=== PATIENT | female | born 1970 | race Hispanic/Latino ===

== ENCOUNTER 2017-10-26 09:38 | Outpatient (CLI) | payer OTHER ==
--- NOTE | 2017-10-27 07:37 | Mammography Report ---
Screening mammogram: Baseline examination. Routine views demonstrates a focal asymmetry in the lateral right breast seen only in the CC projection. In the inferior MLO left breast is an area of architectural distortion not clearly visualized in the cc projection. There is an intermediate generalized fibroglandular density pattern bilaterally. CAD used. Impression: Bilateral asymmetries. Recommendation: Bilateral spot compression imaging and ultrasound, if needed. BI-RADS CATEGORY: 0 = Needs additional imaging evaluation ACR BI-RADS MAMMOGRAPHIC CODES: 0 = Needs additional imaging evaluation; 1 = Negative; 2 = Benign; 3 = Probably benign; 4 = Suspicious; 5 = Malignant; 6 = Known biopsy-proven malignancy COMMENT: 1. Dense breast tissue, i.e., adenosis, fibrocystic changes, etc., may obscure an underlying neoplasm. 2. Approximately 10% of cancers are not detected with mammography. 3. A negative mammography report should not delay biopsy if a clinically suspicious mass is present. A break in the
== END 2017-10-26 09:39 | disposition home or self-care (01) ==
LOC: MAMMO 09:38
PROVIDERS: ATTEND Obstetrics & Gynecology
DX: Z12.31 Encounter for screening mammogram for malignant neoplasm of breast (principal)
CPT/HCPCS: 77067

== ENCOUNTER 2017-11-10 08:29 | Outpatient (CLI) | payer OTHER ==
--- NOTE | 2017-11-10 09:24 | Mammography Report ---
BILATERAL DIGITAL DIAGNOSTIC MAMMOGRAM : 11/10/17 08:29:00 CLINICAL: Recalled for bilateral asymmetries. COMPARISON:10/26/17 screening FINDINGS: Bilateral true lateral and spot images without and with magnification were performed and are negative. IMPRESSION: No mammographic evidence of malignancy. BI-RADS CATEGORY: 1 -- Negative RECOMMENDATION: Routine mammographic screening in one year. ACR BI-RADS MAMMOGRAPHIC CODES: 0 = Needs additional imaging evaluation; 1 = Negative; 2 = Benign; 3 = Probably benign; 4 = Suspicious; 5 = Malignant; 6 = Known biopsy-proven malignancy COMMENT: 1. Dense breast tissue, i.e., adenosis, fibrocystic changes, etc., may obscure an underlying neoplasm. 2. Approximately 10% of cancers are not detected with mammography. 3. A negative mammography report should not delay biopsy if a clinically suspicious mass is present. COMMENT: Patient follow-up letters are generated via our [employer] application.
== END 2017-11-10 08:30 | disposition home or self-care (01) ==
LOC: MAMMO 08:29
PROVIDERS: ATTEND Obstetrics & Gynecology
DX: R92.8 Other abnormal and inconclusive findings on diagnostic imaging of breast (principal)
CPT/HCPCS: 77066

== ENCOUNTER 2017-11-26 13:13 | Emergency (ER) | payer OTHER ==
[2017-11-26] MEDS ORDERED: MOTRIN PO ONE (20:22)
--- NOTE | 2017-11-26 20:23 | Emergency Department Report ---
ED Abdominal Pain HPI - General Chief Complaint: Abdominal Pain Stated Complaint: PAIN IN LOWER L SIDE Time Seen by Provider: 11/26/17 20:19 Source: patient Mode of arrival: Ambulatory Limitations: No Limitations - History of Present Illness Initial Comments: 47-year-old female comes to the emergency room complaining of left back and left groin pain since Wednesday. Patient denies any dysuria denies any hematuria denies any constipation denies any diarrhea no nausea no vomiting. Patient admits to left flank and left groin pain that feels sharp consistent and pains worse with movement. Patient denies any vaginal discharge no vaginal bleeding. Reports her had vasectomy. She has had no surgeries she has a past medical history of hypothyroidism and is taken homeopathic medication from her primary care provider. She does admit to a low- grade fever but did subjectively did not have a thermometer. MD Complaint: abdominal pain, flank pain -: days(s) (3) Location: LLQ, L flank Radiation: LLQ Migration to: no migration Severity: severe Severity scale (0 -10): 9 Quality: fullness, sharp Consistency: constant Improves With: rest Worsens With: movement - Related Data Previous Rx's Medication Instructions Recorded Last Taken Type Acetaminophen/Codeine [Tylenol 1 tab PO Q4HR PRN #12 tablet 11/26/17 Unknown Rx /Codeine # 3 tab] Nitrofurantoin Monohyd/M-Cryst 100 mg PO BID #14 capsule 11/26/17 Unknown Rx [Macrobid 100 mg Capsule] Allergies Allergy/AdvReac Type Severity Reaction Status Date / Time No Known Allergies Allergy Unverified 10/26/17 09:38 ED Review of Systems ROS: Stated complaint: PAIN IN LOWER L SIDE Other details as noted in HPI Constitutional: chills (chronic), fever (subjective) Eyes: denies: eye pain, eye discharge, vision change ENT: denies: ear pain, throat pain Respiratory: denies: cough, shortness of breath, wheezing Cardiovascular: denies: chest pain, palpitations Endocrine: no symptoms reported Gastrointestinal: abdominal pain. denies: nausea, vomiting, diarrhea, constipation Genitourinary: denies: urgency, dysuria, frequency, hematuria, discharge, abnormal menses Musculoskeletal: back pain (left flank pain) Skin: denies: rash, lesions Neurological: denies: headache, weakness, paresthesias Psychiatric: denies: anxiety, depression Hematological/Lymphatic: denies: easy bleeding, easy bruising ED Past Medical Hx - Past Medical History Additional medical history: hypothyroidism - Social History Smoking Status: Never Smoker Substance Use Type: None - Medications Home Medications: Home Medications Medication Instructions Recorded Confirmed Last Taken Type Acetaminophen/Codeine [Tylenol 1 tab PO Q4HR PRN #12 tablet 11/26/17 Unknown Rx /Codeine # 3 tab] Nitrofurantoin Monohyd/M-Cryst 100 mg PO BID #14 capsule 11/26/17 Unknown Rx [Macrobid 100 mg Capsule] ED Physical Exam - General Limitations: No Limitations General appearance: alert, in no apparent distress - Head Head exam: Present: atraumatic, normocephalic - Eye Eye exam: Present: normal appearance - ENT ENT exam: Present: mucous membranes moist - Neck Neck exam: Present: normal inspection - Respiratory Respiratory exam: Present: normal lung sounds bilaterally. Absent: respiratory distress - Cardiovascular Cardiovascular Exam: Present: regular rate, normal rhythm. Absent: systolic murmur, diastolic murmur, rubs, gallop - GI/Abdominal GI/Abdominal exam: Present: soft, tenderness (left lower quadrant), normal bowel sounds - Extremities Exam Extremities exam: Present: normal inspection - Back Exam Back exam: Present: normal inspection, CVA tenderness (L) - Neurological Exam Neurological exam: Present: alert, oriented X3 - Psychiatric Psychiatric exam: Present: normal affect, normal mood - Skin Skin exam: Present: warm, dry, intact, normal color. Absent: rash ED Course Vital Signs 11/26/17 11/26/17 14:32 20:51 Temperature 98 F Pulse Rate 74 Respiratory 18 18 Rate Blood Pressure 145/76 O2 Sat by Pulse 98 Oximetry ED Medical Decision Making - Medical Decision Making Patient's been evaluated by this provider fast track. Discussed the patient give her pain medication as well as urinalysis hCG urine. CT for concerns of urinary stones. Critical care attestation.: If time is entered above; I have spent that time in minutes in the direct care of this critically ill patient, excluding procedure time. ED Disposition Clinical Impression: Abdominal pain Qualifiers: Abdominal location: left lower quadrant Qualified Code(s): R10.32 - Left lower quadrant pain UTI (urinary tract infection) Qualifiers: Urinary tract infection type: site unspecified Hematuria presence: with hematuria Qualified Code(s): N39.0 - Urinary tract infection, site not specified ; R31.9 - Hematuria, unspecified Disposition: DC-01 TO HOME OR SELFCARE Is pt being admited?: No Does the pt Need Aspirin: No Condition: Stable Instructions: Abdominal Pain (ED) Additional Instructions: Complete antibiotics as prescribed. Follow up with her primary care provider if symptoms persist or gets worse. Prescriptions: Acetaminophen/Codeine [Tylenol /Codeine # 3 tab] 1 tab PO Q4HR PRN #12 tablet PRN Reason: Pain Nitrofurantoin Monohyd/M-Cryst [Macrobid 100 mg Capsule] 100 mg PO BID #14 capsule Referrals: EUGENIO DANIEL DO [Primary Care Provider] - 3-5 Days Forms: Work/School Release Form(ED)
[2017-11-26 20:38] LABS: HCG Qualitative,Urine Negative (Negative)
[2017-11-26 20:42] LABS: Bilirubin,Urine NEG (Negative); Blood,Urine MOD (Negative); Color,Urine Yellow (Yellow); Mucus,Urine FEW /HPF; Protein,Urine <15 mg/dL mg/dL (Negative); Urobilinogen,Urine < 2.0 mg/dL (<2.0)
--- NOTE | 2017-11-26 22:09 | Cat Scan Report ---
FINAL REPORT EXAM: CT ABDOMEN PELVIS WO CON HISTORY: left lower quadrant and left flank pain. TECHNIQUE: Unenhanced stone protocol CT of the abdomen and pelvis at 2.5 millimeter axial increments. Coronal and sagittal reconstruction was also performed. PRIORS: None. FINDINGS: There is no evidence for renal calculi or hydronephrosis. No evidence for ureteral or bladder calculus is seen. No evidence for renal or bladder mass is noted. Otherwise, within the limits of a noncontrast exam, the liver, spleen, pancreas, gallbladder, and adrenal glands are unremarkable. No evidence for retroperitoneal or pelvic lymphadenopathy is seen. The bowel loops have normal caliber. No fluid collection, inflammatory change, or free air is seen within the abdomen or pelvis. The appendix is normal. Within the pelvis, the uterus is elongated and retroverted. Images through the upper abdomen include the lung bases which are expanded and clear. Bony structures show no focal abnormalities. IMPRESSION: 1. No evidence for renal calculi or renal obstruction. 2. Negative CT of the abdomen and pelvis.
[2017-11-27 07:25] VITALS: BP 142/74
== END 2017-11-26 23:00 | disposition home or self-care (01) ==
LOC: ED 13:13
DX: N39.0 Urinary tract infection, site not specified (principal); E03.9 Hypothyroidism, unspecified
CPT/HCPCS: 74176; 81001; 81025; 87086; 99284